=== PATIENT | female | born 1950 | race Caucasian/White ===

== ENCOUNTER → 2017-03-08 | Outpatient (CLI) | payer OTHER ==
--- NOTE | 2017-03-08 14:59 | RAD ---
Right foot, 3 views, 03/08/2017: History: Pain, toe cramping There is mild patchy bony demineralization. No fracture or destructive bony lesion is seen. There is mild degenerative changes at scattered interphalangeal joints. A small inferior calcaneal spur is present. IMPRESSION: No acute bony abnormality is detected.
== END | disposition home or self-care (01) ==
LOC: DXRADRC 10:00
PROVIDERS: ATTEND Nurse Practitioner Family
DX: M19.071 Primary osteoarthritis, right ankle and foot (principal); M77.31 Calcaneal spur, right foot
CPT/HCPCS: 73630

== ENCOUNTER → 2018-05-29 | Outpatient (CLI) | payer OTHER, MEDICARE ==
--- NOTE | 2018-05-29 18:16 | RAD ---
Renal ultrasound 05/29/2018 CLINICAL HISTORY: History of renal cysts TECHNIQUE: A real-time ultrasound examination of both kidneys and the urinary bladder was performed. Multiple images were obtained. FINDINGS: Comparison is made to the patient's CT scan of the abdomen and pelvis performed at [facility] dated 06/09/2014. Both kidneys are within normal limits in size. The right kidney measures 9.9 cm in length. The left kidney measures 10.4 cm in length. Multiple rounded predominantly anechoic structures consistent with cysts are seen scattered throughout both kidneys, left greater than right. These measure 7 mm to 1.8 cm in size. The largest cyst is located within the lower pole of the right kidney. These do not appear significantly changed. A 5 mm rounded hyperechoic area is seen within the superior pole the left kidney consistent with an angiomyolipoma which is unchanged. No solid mass is seen. There is no evidence of hydronephrosis. The urinary bladder is distended with urine. No abnormality is seen. IMPRESSION: Cysts are seen involving both kidneys essentially unchanged as outlined above. No acute abnormality is seen. Electronically signed by: Vadim Cardenas MD (05/29/2018 6:12 PM) [id number]
== END | disposition home or self-care (01) ==
LOC: US 12:36
PROVIDERS: ATTEND Urology
DX: N28.1 Cyst of kidney, acquired (principal)
CPT/HCPCS: 76770

== ENCOUNTER → 2018-11-22 | Outpatient (CLI) | payer OTHER, MEDICARE ==
--- NOTE | 2018-11-22 09:47 | RAD ---
LUMBAR SPINE 2-3V History: BACK PAIN STARTED LAST NIGHT Comparison: None. Findings: 4 views lumbar spine are submitted. Lumbar vertebral body stature and AP alignment are maintained. There is mild degenerative disc disease and spondylosis L2-3, also moderate degenerative disc disease at L4-5. There is facet degenerative change greater inferiorly of the lumbar spine. Impression: 1. There is moderate degenerative disc disease at L4-5, to lesser degree at L2-3. Electronically signed by: Kuldeep Hilton MD (11/22/2018 9:42 AM) [email or web address]
== END | disposition home or self-care (01) ==
LOC: PMG 09:22
PROVIDERS: ATTEND Registered Nurse
DX: M51.36 Other intervertebral disc degeneration, lumbar region (principal); M47.896 Other spondylosis, lumbar region
CPT/HCPCS: 72100

== ENCOUNTER → 2019-04-02 | Outpatient (CLI) | payer OTHER, MEDICARE ==
--- NOTE | 2019-04-02 10:48 | RAD ---
Left lower back ultrasound, 04/02/2019: HISTORY: Mass. The area of clinical concern in the left lower back just above the level the baseline was carefully scanned. There is an oval-shaped subcutaneous mass which is isoechoic relative to the fat. It measures 4.9 x 5.8 x 1.8 cm. The features are compatible with a lipoma. No other mass or unusual fluid collection is seen. IMPRESSION: Subcutaneous isoechoic mass as described above most compatible with a lipoma. Clinical surveillance is suggested. Electronically signed by: Guy Jaquez MD (04/02/2019 10:45 AM) [facility]
== END | disposition home or self-care (01) ==
LOC: US 09:38
PROVIDERS: ATTEND Physician Assistant Medical
DX: M79.89 Other specified soft tissue disorders (principal)
CPT/HCPCS: 76705

== ENCOUNTER → 2019-06-04 | Outpatient (CLI) | payer OTHER, MEDICARE ==
--- NOTE | 2019-06-04 08:57 | RAD ---
Indication: Bilateral renal lesion. TECHNIQUE: Grayscale and color Doppler images of the bilateral kidneys and bladder. COMPARISON: None FINDINGS: The right kidney measures 9.5 x 4.0 x 4.0 cm without hydronephrosis. Hypoechoic oval-shaped lesion in the inferior pole of the right kidney measuring 1.6 x 1.0 x 1.2 cm without internal vascularity, previously 1.8 x 1.2 x 1.0 cm. Another 0.5 x 0.7 x 0.6 cm hypoechoic lesion in the upper pole of the right kidney without vascularity. The left kidney measures 10.6 x 4.8 x 5.1 cm without hydronephrosis. 1.1 x 1.1 x 1.1 cm hypoechoic lesion in the interpolar kidney demonstrating posterior acoustic enhancement most likely a simple cyst. Another 1.7 x 1.3 x 1.6 cm hypoechoic lesion without vascularity seen in the left kidney. Yet another 0.6 x 0.8 x 0.8 cm 2 small to characterize hypoechoic lesion in the superior pole of the left kidney likely small cyst. 0.8 x 0.8 x 0.7 cm echogenic focus in the upper pole of the left kidney most likely a angiomyolipoma. Urinary bladder within normal limits. IMPRESSION: Bilateral renal lesions relatively stable compared to previous exam suggests simple cysts and left renal angiomyolipomas. Follow-up recommended. Electronically signed by: Tez Espinal DO (06/04/2019 8:54 AM) [facility]
== END | disposition home or self-care (01) ==
LOC: US 07:39
PROVIDERS: ATTEND Urology
DX: N28.9 Disorder of kidney and ureter, unspecified (principal)
CPT/HCPCS: 76770

== ENCOUNTER → 2019-08-28 | Outpatient (CLI) | payer OTHER, MEDICARE ==
--- NOTE | 2019-08-29 09:01 | RAD ---
Examination: L-SPINE 6V AP/LAT/OBL/FLEX/EXT History: Back pain after standing up Comparison/Correlation: None Findings: Mucosal images of the lumbar spine were obtained. This includes flexion and extension views in addition to the standard 5 images. Mildly exaggerated lordosis of lumbar spine is present. Mild spurring is present. Vertebral body heights are adequate. No fracture or bony destruction. Facet joint degenerative change within the lumbar spine are present. Alignment is normal on flexion and extension imaging as well as the neutral position. Mild to moderate multilevel lower lumbar spine disc space narrowing from L2- L4. Impression: Alignment is unremarkable. Mildly exaggerated lordosis of the lumbar spine. Mild to moderate disc space narrowing from L2 to L4. Electronically signed by: Johnnie Deleon MD (08/29/2019 8:58 AM) [facility]
== END | disposition home or self-care (01) ==
LOC: DXRAD 10:21
PROVIDERS: ATTEND Registered Nurse
DX: M40.46 Postural lordosis, lumbar region (principal); M48.061 Spinal stenosis, lumbar region without neurogenic claudication; M47.816 Spondylosis without myelopathy or radiculopathy, lumbar region; M46.06 Spinal enthesopathy, lumbar region
CPT/HCPCS: 72114

== ENCOUNTER → 2019-09-29 | Outpatient (CLI) | payer OTHER, MEDICARE ==
--- NOTE | 2019-09-29 14:12 | RAD ---
EXAM: Abdomen, single view. HISTORY: Pain. COMPARISON: None. FINDINGS: A frontal view of the abdomen is obtained. There is gas and stool within the colon. No abnormally dilated loop of bowel seen. There is no transition point to suggest obstruction. IMPRESSION: Nonspecific bowel gas pattern, without evidence of obstruction. Electronically signed by: Delmy Mahan MD (09/29/2019 2:09 PM) [id number]
== END | disposition home or self-care (01) ==
LOC: PMG 11:37
PROVIDERS: ATTEND Registered Nurse
DX: R10.9 Unspecified abdominal pain (principal)
CPT/HCPCS: 74018

== ENCOUNTER → 2020-06-09 | Outpatient (CLI) | payer OTHER, MEDICARE ==
--- NOTE | 2020-06-09 17:25 | RAD ---
INDICATION: Reason: ABNORMAL FINDINGS ON PRIOR IMAGING / Spl. Instructions: / History: COMPARISON: June 04, 2019 TECHNIQUE: Grayscale and color ultrasound images obtained of the bilateral kidneys and bladder. FINDINGS: Right Kidney: 99 mm. No hydronephrosis. 9 mm cystic lesion with some internal echoes. Left Kidney: 99 mm. No hydronephrosis. 14 mm cystic lesion which appears largely simple. 6 mm echogenic lesion along the cortex. Bladder: Partially distended. Approximately 40 cc prevoid. IMPRESSION: * Small complex cystic lesion of the right kidney which appears slightly increased from prior. Follow-up could be obtained to ensure no growth. * Cystic lesion left kidney does not appear significantly increased compared to prior. * There is a small echogenic focus along the renal cortex on the left. Some possible causes would include angiomyolipoma but the ultrasound appearance is nonspecific and higher grade lesions can have this appearance as well. This appears similar to prior. Electronically signed by: Cruz Scales MD (06/09/2020 5:22 PM) [id number]
== END | disposition home or self-care (01) ==
LOC: US 14:52
PROVIDERS: ATTEND Urology
DX: N32.89 Other specified disorders of bladder (principal); R93.41 Abnormal radiologic findings on diagnostic imaging of renal pelvis, ureter, or bladder; Q61.8 Other cystic kidney diseases
CPT/HCPCS: 76770

== ENCOUNTER → 2021-07-13 | Outpatient (CLI) | payer OTHER, MEDICARE ==
--- NOTE | 2021-07-13 16:43 | RAD ---
EXAM: XR CERVICAL SPINE 4-5V 07/13/2021 9:38 AM CLINICAL INDICATION: Neck pain COMPARISON: None TECHNIQUE: AP, lateral, odontoid, and right and left oblique views were obtained FINDINGS: There is no acute fracture. There is reversal of lordosis. 3 mm retrolisthesis of C5 on C6 . There is moderate disc space narrowing at C5-C6 with endplate sclerosis. Mild disc space narrowing at C6-C7. Advanced uncovertebral joint proliferation at C5-C6 and C6-C7. The dens appears intact and symmetric and the ring of C1. Prevertebral soft tissue is normal. There is facet arthrosis at C7-T1. IMPRESSION: Moderate degenerative disc disease and uncovertebral joint proliferation at C5-C6, milder at C6-C7. Electronically signed by: Ginette Ronquillo MD (07/13/2021 4:41 PM) [id number]
== END ==
LOC: RAD 09:31
PROVIDERS: ATTEND Physician Assistant Medical
DX: M50.322 Other cervical disc degeneration at C5-C6 level (principal); M48.02 Spinal stenosis, cervical region
CPT/HCPCS: 72050

== ENCOUNTER → 2021-07-26 | Outpatient (CLI) | payer OTHER, MEDICARE ==
--- NOTE | 2021-07-26 14:21 | RAD ---
EXAM: RENAL/RETROPERITONAL ULTRASOUND. HISTORY: Follow-up renal lesions. COMPARISON: 06/09/2020. FINDINGS: Ultrasound of the kidneys, bladder and retroperitoneum was performed. The right kidney measures 9.6 cm. Cortical thickness and echogenicity are preserved. There is no hydr onephrosis. A 14 x 11 mm cyst in the right kidney contains thin septations but no clear solid compone nt. This appears increased from 9 mm previously. The left kidney measures 10.9 cm. Cortical thickness and echogenicity are preserved. There is no hydr onephrosis. A simple cyst at the left lower pole measures 21 x 15 mm and also appears mildly increase d. A hyperechoic nodule at the upper pole measures 9 x 7 mm and has increased by 3 mm. Images of the bladder reveal no gross abnormality. The abdominal aorta and inferior vena cava are brian ssly patent and normal in caliber. IMPRESSION: 1. A hyperechoic nodule at the upper pole of the left kidney measures 9 mm, increased from 6 mm. This may represent an angiomyolipoma but is indeterminate. Six-month follow-up or CT could be considered. 2. Bilateral small cysts have also increased in size since the prior study but benignity is favored. Attention on further follow-up. Electronically signed by: Jimmie Mercer MD (07/26/2021 2:19 PM) [id number]
== END ==
LOC: US 12:39
PROVIDERS: ATTEND Urology
DX: N28.1 Cyst of kidney, acquired (principal); R93.41 Abnormal radiologic findings on diagnostic imaging of renal pelvis, ureter, or bladder
CPT/HCPCS: 76770